=== PATIENT | male | born 1975 | race African-American/Black ===

== ENCOUNTER 2018-03-29 20:19 | Inpatient (IN) ==
[2018-03-29] MEDS ORDERED: NS 1,000 ML IV ONE ×2 (20:42→23:18)
--- NOTE | 2018-03-29 21:10 | Diag Imaging Result Doc PS360 ---
CHEST-1 VIEW - 03/29/2018 INDICATION: tachypnea COMPARISON: 03/19/2016 FINDINGS: There is a focal infiltrate in the left upper lobe. Heart size is normal. No pneumothorax or pleural effusion. IMPRESSION: Left upper lobe infiltrate. Correlate for probable pneumonia. Electronically signed by Slick Valentino 03/29/2018 9:08 PM
[2018-03-29 21:33] LABS: BASO# 0.01 X1000 (0.0-0.2); BASO% 0.1 % (0.0-0.8); HEMATOCRIT 41.7 % (42.0-52.0); HEMOGLOBIN 13.9 g/dL (14.0-18.0); IMM GRAN# 0.03 X1000 (0.0-0.04); IMM GRAN% 0.3 % (0.0-0.5); LYMPH# 1.53 X1000 (1.2-3.4); LYMPH% 15.3 % (20.5-51.1); MCH 29.6 PG (27-31); MCHC 33.3 g/dL (33-37); MCV 88.9 FL (81-99); MONO# 0.86 X1000 (0.11-0.59); MONO% 8.6 % (1.7-9.3); MPV 11.3 FL (7.4-10.4); NEUT# 7.55 X1000 (1.4-6.5); NEUT% 75.7 % (42.2-75.2); PLT 215 X1000 (130-400); RBC 4.69 XMIL (4.7-6.1); RDW 12.1 % (11.5-14.5); WBC 9.98 X1000 (4.8-10.8)
[2018-03-29 21:53] LABS: AGAP 13; ALB/GLOB RATIO 1.4; ALBUMIN 4.5 g/dL (3.5-5.0); ALKALINE PHOSPHATASE 94 U/L (32-122); BUN 10 mg/dL (8-22); CALCIUM 9.5 mg/dL (8.8-10.2); CHLORIDE 94 mmol/L (98-107); COSMO 277; CREATININE 1.5 mg/dL (0.7-1.2); ESTIMATED GFR > 60; GLUCOSE 307 mg/dL (70-104); GOT 33 U/L (10-34); GPT 76 U/L (10-44); POTASSIUM 4.6 mmol/L (3.5-5.1); SODIUM 133 mmol/L (136-145); TCO2 26 mmol/L (25-35); TOTAL BILIRUBIN 0.77 mg/dL (0.20-1.00); TOTAL PROTEIN 7.8 g/dL (6.3-8.3)
[2018-03-29] MEDS ORDERED: ROCEPHIN 1 GM in NS 50 ML IV ONE (21:59)
[2018-03-29] MEDS ORDERED: ZITHROMAX 500 MG/NS 500 MG/250 ML IVPB IV ONE (22:00)
[2018-03-29] MEDS ORDERED: TYLENOL PO ONE (22:32)
[2018-03-29] MEDS ORDERED: NS 500 ML IV ONE (23:37)
[2018-03-29 23:43] LABS: URINE SOURCE CLEAN CATCH
[2018-03-30 00:14] LABS: BILIRUBIN URINE NEGATIVE (NEGATIVE); BLOOD URINE NEGATIVE (NEGATIVE); COLOR YELLOW; GLUCOSE URINE TRACE mg/dL (NEGATIVE); KETONE URINE NEGATIVE (NEGATIVE); LEUKOCYTES URINE MODERATE (NEGATIVE); NITRITE URINE NEGATIVE (NEGATIVE); PH URINE 6.5; PROTEIN URINE NEGATIVE (NEGATIVE); SP GRAVITY URINE 1.001; TURBIDITY URINE CLEAR (CLEAR); UR EPITHELIAL CELLS <10 /HPF (<10); URINE BACTERIA NEGATIVE /HPF; URINE RBC <10 /HPF (<10); URINE WBC <10 /HPF (<10); UROBILINOGEN URINE NORMAL (NORMAL)
--- NOTE | 2018-03-30 00:16 | PROVIDER DOCUMENTATION ---
This chart was entered by Jaclyn Veras Scribe, acting as scribe for Sandra Mckeon DO. HPI-General Adult - General Chief Complaint: Flu Symptoms Stated Complaint: CHILLS, BODY ACHES, FEVER Time Seen by Provider: 03/29/18 20:26 Source: patient Allergies/Adverse Reactions: Patient Allergies Allergy/AdvReac Type Severity Reaction Status Date / Time No Known Allergies Allergy Verified 02/28/17 19:22 Home Medications: Home Medication List Medication Instructions Recorded Confirmed Last Taken Type Lorazepam [Ativan] 1 mg PO QHS 06/29/15 03/29/18 03/28/18 21:00 History Metformin [Glucophage] 850 mg PO TID CC 11/14/15 03/29/18 03/19/16 History Fluoxetine HCl 40 mg PO DAILY 02/28/17 03/29/18 03/28/18 History Glimepiride 20 mg PO DAILY 02/28/17 03/29/18 Unknown History Aripiprazole 1 tab PO AC 03/29/18 03/29/18 03/29/18 09:00 History Aripiprazole 1 tab PO HS 03/29/18 03/29/18 03/28/18 21:00 History - History of Present Illness -Gen Adult Nature of Presenting Problems: Pt is 42/m presenting to ED w/ chills, aches, pains and fever this morning. Fever reported between 102 and 104. Sts that he has also has some pain w/ urination today as well. Location of Pain/Injury: reports: generalized Pain Radiation: reports: no radiation Quality of Pain: reports: aching Severity: reports: moderate Onset/Duration: reports: this morning Timing: reports: still present Context/Activities at Onset: reports: none Modifying Factors: improves with: nothing Associated Symptoms: reports: fatigue, fever/chills. denies: cough, dizziness, shortness of breath Similar Symptoms Previously?: No Recently seen or treated by another doctor?: No Review of Systems - Adult - REVIEW OF SYSTEMS - ADULT Constitutional: reports: chills, fever Eyes: reports: no symptoms reported Ears, Nose, Mouth & Throat: reports: no symptoms reported Cardiovascular: reports: no symptoms reported. denies: chest pain, edema Respiratory: denies: cough, shortness of breath Gastrointestinal: denies: abdominal pain, nausea, vomiting Genitourinary: reports: dysuria. denies: frequent UTI's, hematuria Musculoskeletal: reports: back pain Integumentary: reports: no symptoms reported Neurological: reports: no symptoms reported. denies: dizziness/vertigo, headache/migraines Psychiatric: reports: no symptoms reported Endocrine: reports: no symptoms reported Hematologic/Lymphatic: reports: no symptoms reported Allergic/Immunologic: reports: no symptoms reported All Other Systems: Reviewed and Negative Past History - Adult - PAST MEDICAL HISTORY-ADULT Review of Records: reports: Old Records Reviewed, Nursing Assessment Review, Medications Reviewed, Social history reviewed & non-contributory. Major Childhood Illnesses: reports: denies history Cardiovascular: reports: denies history Respiratory: reports: denies history Gastrointestinal: reports: denies history Obstetrical/Gynecological: reports: denies history Genitourinary: reports: denies history, chronic UTI's (but no sign of UTI on last UA last week.) Musculoskeletal: reports: denies history Neurological: reports: denies history Psychiatric: reports: psychiatric problems, schizophrenia Endocrine/Immune: reports: denies history Other Conditions: reports: denies history - PRIOR SURGERIES/PROCEDURES Surgical/Procedure History: reports: none - IMMUNIZATION STATUS Childhood Immunizations: See Nurse Assessment Flu Vaccine: See Nurse Assessment - FAMILY HISTORY Family History: reviewed, not pertinent, mental illness (mother and brother- schizophrenia) - SOCIAL HISTORY Smoking: cigarettes, greater than 1 pack/day Provider spent 3-5 mins advising pt. on dangers of tobacco.: Discussed manners to quit use, and f/u contacts for add'l counseling. Alcohol Use Frequency: never Living Situation: family Physical Exam-General - PHYSICAL EXAM-ADULT Initial Vital Signs Reviewed: Yes - CONSTITUTIONAL General Appearance: appears well, alert, no apparent distress, other ( diaphoretic) - EYES Eyes: PERRL/EOMI - HEAD, EARS, NOSE, MOUTH & THROAT HENMT: normocephalic/atraumatic, moist mucous membranes, normal ENT inspection, TMs normal - NECK Neck: non-tender, full range of motion, supple, normal inspection - RESPIRATORY Respiratory: lungs clear, other (tachypenia) - CARDIOVASCULAR Cardiovascular: normal peripheral pulses, regular rate, rhythm, no edema - GASTROINTESTINAL (ABDOMEN) Abdominal Exam: normal bowel sounds, non tender, soft - LYMPHATIC Lymphatic: no adenopathy - MUSCULOSKELETAL Back Exam: normal inspection, no CVA tenderness, no vertebral tenderness Extremity: normal range of motion, non-tender, normal gait, normal inspection - SKIN Integumentary: normal color, warm/dry, diaphoresis - NEUROLOGIC Neurologic: grossly normal - PSYCHIATRIC Psych/Mental Status: normal mood/affect, normal thought content, normal thought process, oriented x 3 Progress - PLAN OF CARE/RESULTS Progress/Plan/Lab Results: Vital Signs - 8 hr 03/29/18 20:21 Temperature 100.1 F H Pulse Rate 118 H Respiratory Rate 18 Blood Pressure 163/97 O2 Sat by Pulse Oximetry 98 Orders Category Date Time Status INFLUENZA SCREEN A/B Stat Lab 03/29/18 20:24 Ordered Clinically stable under my care. Considerations include but not limited to: influenza, pna. His CXR shows a RIDDHI pna. His lactic acid is elevated at 2.8. He was given Ceftriaxone and Azithromycin. Admitted to the hospitalist service for further treatment. Result Diagrams: 03/29/18 21:10 03/29/18 21:10 Departure - Departure Date of Disposition Decision: 03/29/18 Time of Disposition Decision: 22:00 DIAGNOSIS: PNA (pneumonia) Qualifiers: Pneumonia type: due to unspecified organism Laterality: left Lung location: upper lobe of lung Qualified Code(s): J18.1 - Lobar pneumonia, unspecified organism Sepsis Qualifiers: Sepsis type: sepsis due to unspecified organism Qualified Code(s): A41.9 - Sepsis, unspecified organism Disposition: ADMITTED INPATIENT 09 Certified Medical Emergency: Emergent Condition: Fair Referrals and Follow-Ups: Eli Ambrosio MD [Primary Care Provider] - - Critical Care Note This patient required my direct & personal management of CC.: No Attestation - Physician/ VIVIANE Attestation Patient care was provided by Advanced Practice Provider:: No The physician spent face to face time with patient:: Yes Advanced Practice Provider documentation review:: Supervising physician onsite and consulted in the evaluation and care of this patient. The physician did have a face to face encounter with the patient. This chart was documented by the indicated scribe, (Jaclyn Veras, Scribe) and accurately reflects the services I performed and decisions made by me, Sandra Mckeon DO, as attested by the provider's signature.
--- NOTE | 2018-03-30 00:19 | HISTORY AND PHYSICAL ---
ADDENDUM: To the anticipated H and P to be done by the TELEPHONIC NURSE CASE MANAGER. Patient is complaining of a 2-day history of aches, fevers, weakness and a mild cough. Came in to get checked out and was found to have a left upper lobe infiltrate though his white count is just only 9000. He does have an elevated lactate of 2.8 which puts him at slight risk for becoming septic. As a result of this, he is being admitted. When I examined him, his exam was only notable for him being hot to touch. His cardiorespiratory exam was essentially normal. Vital signs: Blood pressure was 163/97, heart rate was 118, respiratory rate is 18, temperature is 100.6. Abdomen was benign. He will be treated for community-acquired pneumonia with Rocephin and Zithromax. IV fluids will be aggressively instituted and repeat lactate followed up. He does have good distal pulses in all extremities. so he does not appear to be in any evidence of septic shock or sepsis or any evidence of early organ failure. His A1c will need to be checked and all agents will be withheld and managed on sliding scale Humalog for now. cc: MD Dr. Hebert Wolf
[2018-03-30] MEDS ORDERED: ZOFRAN IV PRN (01:49)
[2018-03-30] MEDS: NS 1,000 ML IV SCH ×2 (02:39→16:13)
--- NOTE | 2018-03-30 05:09 | HISTORY AND PHYSICAL ---
PRIMARY CARE PROVIDER: Dr. Adrien Ambrosio. DATE AND TIME: 01/27/2019 at 0030. CHIEF COMPLAINT: Flu-like symptoms. HISTORY OF PRESENT ILLNESS: Mr. Dozier is a 42-year-old male who presented to the emergency department on March 29 at 20:19 with complaints of 2-day history of having fever, body aches and chills. He also did report a mild cough. He denies any headache, sinus congestion or drainage. He denies any shortness of breath or chest pain. The patient had reported that he does live in a house where there are children in the home who have been exposed to the flu though he did test negative for the flu in the ER this evening. A chest x-ray performed did show that he had a left upper lobe infiltrate that could be possible pneumonia. Initial vitals in the ER did show that he had a low-grade fever with a temperature of 100.1, heart rate 118, respirations 18, blood pressure was 163/97 with an oxygen saturation of 98% on room air. His white blood cell count was within normal limits though his lactate was elevated at 2.8. He did receive a total of 2500 mL of normal saline bolus in the ER and since that time his repeat lactate has improved to 1 at this time. Patient also denies any nausea, vomiting or diarrhea. His last bowel movement was yesterday. He was complaining of some occasional intermittent left side pain though he states this is not present at this time. He denied any dysuria, urinary frequency. He denies any pain, numbness, tingling or swelling in extremities. The patient will be placed inpatient admission for further treatment and evaluation of pneumonia. REVIEW OF SYSTEMS: A 14-point review of systems was conducted with the patient and all were negative except for pertinent positives mentioned in above HPI. PAST MEDICAL HISTORY: 1. Diabetes mellitus type 2. 2. Bipolar disorder. 3. Manic depressive disorder. PAST SURGICAL HISTORY: The patient denies any previous surgeries. SOCIAL HISTORY: The patient is a current everyday smoker and smokes a half a pack of cigarettes per day. He denies any alcohol or illicit drug use. FAMILY HISTORY: Positive for his mother and father both having a history of diabetes mellitus. ALLERGIES: The patient has no known allergies. HOME MEDICATIONS: 1. Abilify 5 mg p.o. q.a.m. 2. Abilify 15 mg p.o. at bedtime. 3. Fluoxetine 40 mg p.o. daily. 4. Glimepiride p.o. daily. 5. Ativan 1 mg p.o. at bedtime. 6. Metformin 850 mg p.o. t.i.d. DIAGNOSTIC DATA: White blood cell count is 9.98. Hemoglobin 13.9. Hematocrit 41.7. Platelet count is 215. Sodium 133. Potassium 4.6. Chloride 94. Serum bicarbonate is 26. BUN 10. Creatinine 1.5 with a GFR greater than 60. Glucose 307. Calcium 9.5. Liver function tests within normal limits except for ALT is slightly elevated at 76. Plasma lactate 2.8 with a redraw after fluid boluses of 1. Urinalysis obtained via clean cath was positive for moderate leukocytes, it was otherwise within normal limits. Chest x-ray did show a left upper lobe infiltrate which was noted to be correlated for probable pneumonia. PHYSICAL EXAMINATION: VITAL SIGNS: Temperature 99, heart rate 99, respirations 18, blood pressure 137 /87, oxygen saturation is 99% on room air. GENERAL: Mr. Dozier is a pleasant 42-year-old male. He was resting in the inpatient bed. He was in no acute distress. He was awake, alert and able to answer all questions appropriately. HEENT: Head is atraumatic, normocephalic. Pupils equal, round, reactive to light, were 3 mm and brisk. Oral mucosa is moist. NECK: Supple. Trachea midline. CARDIOVASCULAR: Patient has normal S1, S2. No murmurs, gallops, or rubs appreciated. PULMONARY: Patient has symmetrical chest expansion bilaterally. Lung sounds were clear to auscultation in bilateral full ramirez. ABDOMEN: Soft, does not appear to be distended though the patient does have a slightly protuberant abdomen noted. Bowel sounds are present in all 4 quadrants, are normoactive. EXTREMITIES: No clubbing, cyanosis, or edema noted. Pulse, motor, and sensory are intact in all extremities. Radial pulses and pedal pulses were 2 plus bilaterally. INTEGUMENTARY: The patient's skin color is normal for his race. It is dry and intact. NEUROLOGICAL: Patient is alert and oriented times 4. Do not appear to be any focal neurological deficits noted. ASSESSMENT AND PLAN: 1. Left upper lobe pneumonia. For this, we will treat the patient with antibiotic coverage of IV Rocephin and azithromycin. The patient's lactate was elevated at 2.8 though after fluid bolus this has improved though at this time, it does not appear that the patient is septic though we will continue to monitor. We will encourage frequent turn, cough and deep breathing as well. 2. Diabetes mellitus type 2. We have ordered for the patient to have a hemoglobin A1c drawn though at this time his creatinine is slightly elevated at 1.5. Given this, we have held his glimepiride and metformin. We will place him on a lispro sliding scale insulin. We will continue to monitor. 3. History of bipolar disorder and manic depressive disorder. We have continued his Abilify and fluoxetine. 4. Nicotine dependence. We did relocation counselor the patient on the importance of smoking cessation for several minutes. He did state verbal understanding. We will order him a nicotine patch as well. 5. Deep venous thrombosis prophylaxis will be provided with sequential compression devices. The patient has been placed on medical floor with telemetry. Will have vital signs q.4 hours. Do strict intake and output. We will repeat the CBC, BMP in the morning. He will be on a diabetic diet. We will continue with some gentle fluid hydration with normal saline at 85 mL per hour. Further orders, recommendations pending hospital course, diagnostic studies and physician evaluation. Dictated by RITO Spring for Eugene Land MD cc: MD Clifton Wolf MD MTDD
[2018-03-30] MEDS: HUMALOG SUBQ SCH ×4 (06:03→20:57)
[2018-03-30] MEDS: ABILIFY PO SCH ×4 (06:09→20:19)
[2018-03-30 07:27] LABS: BASO# 0.01 X1000 (0.0-0.2); BASO% 0.1 % (0.0-0.8); EOS# 0.01 X1000 (0.0-0.7); EOS% 0.1 % (0.0-10.0); HEMATOCRIT 38.8 % (42.0-52.0); HEMOGLOBIN 12.8 g/dL (14.0-18.0); LYMPH# 1.67 X1000 (1.2-3.4); LYMPH% 20.8 % (20.5-51.1); MCH 29.6 PG (27-31); MCV 89.6 FL (81-99); MONO# 0.69 X1000 (0.11-0.59); MONO% 8.6 % (1.7-9.3); MPV 10.7 FL (7.4-10.4); NEUT# 5.65 X1000 (1.4-6.5); NEUT% 70.4 % (42.2-75.2); PLT 194 X1000 (130-400); RBC 4.33 XMIL (4.7-6.1); RDW 12.1 % (11.5-14.5); WBC 8.03 X1000 (4.8-10.8)
[2018-03-30 07:44] LABS: HEMOGLOBIN A1C 10.2 % (4.8-6.0)
[2018-03-30 07:49] LABS: AGAP 14; BUN 8 mg/dL (8-22); CALCIUM 8.7 mg/dL (8.8-10.2); CHLORIDE 102 mmol/L (98-107); COSMO 285; CREATININE 1.4 mg/dL (0.7-1.2); ESTIMATED GFR > 60; GLUCOSE 226 mg/dL (70-104); POTASSIUM 4.2 mmol/L (3.5-5.1); SODIUM 140 mmol/L (136-145); TCO2 24 mmol/L (25-35)
[2018-03-30] MEDS: PROZAC PO SCH (08:29)
[2018-03-30] MEDS: NICODERM PATCH TD SCH (08:29)
[2018-03-30] MEDS: TYLENOL PO PRN ×2 (12:46→20:19)
[2018-03-30] MEDS: ATIVAN PO SCH (20:19)
[2018-03-30] MEDS: ROCEPHIN 1 GM in NS 50 ML IV SCH (20:59)
[2018-03-30] MEDS: ZITHROMAX 500 MG/NS 500 MG/250 ML IVPB IV SCH (23:14)
[2018-03-31] MEDS: ABILIFY PO SCH ×4 (07:21→22:08)
[2018-03-31] MEDS: HUMALOG SUBQ SCH ×4 (07:22→22:06)
[2018-03-31 08:08] LABS: BASO# 0.01 X1000 (0.0-0.2); BASO% 0.2 % (0.0-0.8); EOS# 0.07 X1000 (0.0-0.7); EOS% 1.3 % (0.0-10.0); HEMATOCRIT 37.8 % (42.0-52.0); HEMOGLOBIN 12.6 g/dL (14.0-18.0); LYMPH# 1.68 X1000 (1.2-3.4); LYMPH% 30.1 % (20.5-51.1); MCH 29.8 PG (27-31); MCHC 33.3 g/dL (33-37); MCV 89.4 FL (81-99); MONO# 0.65 X1000 (0.11-0.59); MONO% 11.6 % (1.7-9.3); NEUT# 3.18 X1000 (1.4-6.5); NEUT% 56.8 % (42.2-75.2); PLT 214 X1000 (130-400); RBC 4.23 XMIL (4.7-6.1); WBC 5.59 X1000 (4.8-10.8)
[2018-03-31 08:42] LABS: AGAP 11; ALB/GLOB RATIO 1.2; ALBUMIN 3.9 g/dL (3.5-5.0); ALKALINE PHOSPHATASE 81 U/L (32-122); BUN 10 mg/dL (8-22); CALCIUM 8.5 mg/dL (8.8-10.2); CHLORIDE 104 mmol/L (98-107); COSMO 281; CREATININE 1.2 mg/dL (0.7-1.2); ESTIMATED GFR > 60; GLUCOSE 211 mg/dL (70-104); GOT 32 U/L (10-34); GPT 69 U/L (10-44); POTASSIUM 4.3 mmol/L (3.5-5.1); SODIUM 138 mmol/L (136-145); TCO2 23 mmol/L (25-35); TOTAL BILIRUBIN 0.74 mg/dL (0.20-1.00); TOTAL PROTEIN 7.1 g/dL (6.3-8.3)
[2018-03-31] MEDS: NICODERM PATCH TD SCH (09:21)
[2018-03-31] MEDS: PROZAC PO SCH (09:21)
--- NOTE | 2018-03-31 21:34 | PROGRESS NOTE ---
DATE: 03/31/2018 SUBJECTIVE: The patient is a little better. Decreased cough and wheezing. REVIEW OF SYSTEMS: None reported. OBJECTIVE: Vital signs: Temperature is 98 degrees, pulse is 87, blood pressure 143/98. HEENT: Within normal limits. Neck: Supple. Chest: Clear. No signs of pneumonitis. Heart: Sounds are regular. Belly: Is soft, nontender. Good bowel sounds. No neurological deficits. INVESTIGATIONS: CBC: White cell count 5.5, hematocrit 37, platelets 214,000. SMA 7 is normal. Creatinine 1.2. Sugar is 211, A1c 10. LFTs were normal. Urine cultures are gram-positive cocci. Blood cultures were negative. Is not significant. Influenza screen test was negative. Chest x- ray, left upper lobe infiltrate on 03/29/2018. ASSESSMENT AND PLAN: 1. Uncontrolled diabetes due to noncompliance. We will start back on metformin and glimepiride. 2. A1c 10.1. Restart on metformin and glimepiride. 3. Left upper lobe pneumonia currently on intravenous ceftriaxone and Zithromax. Repeat chest x- ray. 4. Bipolar disorder. Continue present medications. 5. Chronic nicotine abuse on Nicotrol patch. 6. Deep vein thrombosis prophylaxis with Lovenox and repeat the chest x-ray in the morning and will follow up. LEVEL OF DOCUMENTATION: 25 minutes. cc: Clifton Ambrosio MD
[2018-03-31] MEDS: ROCEPHIN 1 GM in NS 50 ML IV SCH (22:02)
[2018-03-31] MEDS: ATIVAN PO SCH (22:08)
[2018-03-31] MEDS: ZITHROMAX 500 MG/NS 500 MG/250 ML IVPB IV SCH (22:59)
[2018-04-01] MEDS: TYLENOL PO PRN (02:52)
[2018-04-01] MEDS: ABILIFY PO SCH ×4 (06:09→22:02)
[2018-04-01] MEDS: HUMALOG SUBQ SCH ×4 (06:10→22:02)
[2018-04-01] MEDS: PROZAC PO SCH (09:20)
[2018-04-01] MEDS: GLUCOPHAGE PO SCH ×3 (09:20→16:00)
[2018-04-01] MEDS: LOVENOX SUBQ SCH (09:20)
[2018-04-01] MEDS: AMARYL PO SCH ×2 (09:23→22:03)
[2018-04-01] MEDS: NICODERM PATCH TD SCH (09:23)
--- NOTE | 2018-04-01 10:04 | Diag Imaging Result Doc PS360 ---
EXAM: CHEST-2 VIEWS 04/01/2018 HISTORY: hypoxia TECHNIQUE: PA and lateral chest COMMENT: There is ill-defined alveolar opacity in the left upper lobe which is somewhat more extensive than on 03/29/2018. It was not present on 03/19/2016. The heart size and pulmonary vascularity are within normal limits. IMPRESSION: Left upper lobe pneumonia. Electronically signed by Shaji Blanca 04/01/2018 10:02 AM
[2018-04-01] MEDS: ATIVAN PO SCH (22:02)
[2018-04-01] MEDS: ROCEPHIN 1 GM in NS 50 ML IV SCH (22:03)
[2018-04-01] MEDS: ZITHROMAX 500 MG/NS 500 MG/250 ML IVPB IV SCH (23:12)
[2018-04-02] MEDS: TYLENOL PO PRN (00:23)
--- NOTE | 2018-04-02 00:54 | PROGRESS NOTE ---
DATE: 04/01/2018 SUBJECTIVE: Patient is anxious to go home. His is at bedside. He is not complaining of any symptoms. EXAMINATION: Vital Signs: Temperature is 98 degrees, pulse is 82, blood pressure is 148/88, 97% on room air. HEENT: Within normal limits. Neck: Supple. Chest: Bilateral air entry. Crackles and rhonchi on the left side. Abdomen: Belly is soft, nontender. Neurologic: No obvious neurological deficits. INVESTIGATIONS: Chest x-ray with worsening of left upper lobe pneumonia. ASSESSMENT AND PLAN: 1. Left upper lobe pneumonia, with underlying diabetes and bipolar disorder. Currently, on ceftriaxone and Zithromax. 2. Type 2 diabetes. Metformin and glimepiride. 3. Bipolar disorder. Continue on Abilify. On Prozac. 4. Deep venous thrombosis prophylaxis with Lovenox. 5. Chronic anxiety, on Ativan at bedtime. 6. Urine cultures basically Staph aureus, 20,000 to 30,000, penicillin-resistant, oxacillin- sensitive. Currently, asymptomatic. Blood cultures were negative. Continue IV antibiotics until the infiltrate clears. 7. Discussed with the family. Agreeable to stay in the hospital. LEVEL OF DOCUMENTATION: 25 minutes. cc: Clifton Ambrosio MD
[2018-04-02] MEDS: HUMALOG SUBQ SCH ×4 (06:09→22:39)
[2018-04-02] MEDS: ABILIFY PO SCH ×4 (06:10→22:38)
[2018-04-02] MEDS: PROZAC PO SCH (08:42)
[2018-04-02] MEDS: LOVENOX SUBQ SCH (08:42)
[2018-04-02] MEDS: AMARYL PO SCH ×2 (08:42→22:39)
[2018-04-02] MEDS: NICODERM PATCH TD SCH (08:42)
[2018-04-02] MEDS: GLUCOPHAGE PO SCH ×3 (08:42→17:12)
[2018-04-02] MEDS: ROCEPHIN 1 GM in NS 50 ML IV SCH (22:38)
[2018-04-02] MEDS: ATIVAN PO SCH (22:39)
[2018-04-02] MEDS: ZITHROMAX 500 MG/NS 500 MG/250 ML IVPB IV SCH (23:29)
[2018-04-03] MEDS: TYLENOL PO PRN (03:48)
--- NOTE | 2018-04-03 03:52 | PROGRESS NOTE ---
DATE: 04/02/2018 SUBJECTIVE: The patient is getting better, afebrile. Nonproductive cough. EXAMINATION: Vital Signs: Temperature is 98.7 degrees, pulse is 88, blood pressure is stable. HEENT: Within normal limits. Neck: Supple. Chest: Clear to auscultation. Heart: Sounds are regular. Abdomen: Belly is soft, nontender. Good bowel sounds. Neurologic: No neurological deficits. ASSESSMENT AND PLAN: 1. Left upper lobe pneumonia. Continue present treatment. Clinically stable. We will repeat a chest x-ray in the morning. 2. Diabetes, stable. 3. Bipolar is stable. LEVEL OF DOCUMENTATION: 15 minutes. cc: Clifton Ambrosio MD
[2018-04-03] MEDS: HUMALOG SUBQ SCH ×2 (06:36→11:50)
[2018-04-03] MEDS: ABILIFY PO SCH ×2 (06:54→11:50)
--- NOTE | 2018-04-03 07:31 | Diag Imaging Result Doc PS360 ---
EXAM: CHEST-2 VIEWS HISTORY: hypoxia TECHNIQUE: Chest three views COMPARISON: 04/01/2018 FINDINGS: The lungs are well expanded. The heart is not enlarged. The vessels are not distended. There are mild increased interstitial markings in the mid left lung similar to the prior study. No pleural effusions. IMPRESSION: Stable chest. Electronically signed by Washington Suarez 04/03/2018 7:28 AM
[2018-04-03 07:38] VITALS: BP 128/84
[2018-04-03] MEDS: LOVENOX SUBQ SCH (08:31)
[2018-04-03] MEDS: GLUCOPHAGE PO SCH ×2 (08:31→11:50)
[2018-04-03] MEDS: AMARYL PO SCH (08:31)
[2018-04-03] MEDS: NICODERM PATCH TD SCH (08:32)
[2018-04-03] MEDS: PROZAC PO SCH (08:32)
[2018-04-03] MEDS ORDERED: PREVNAR 13 IM ONE (09:27)
--- NOTE | 2018-04-04 15:58 | DISCHARGE SUMMARY ---
ADMISSION DATE: 03/30/2018 DISCHARGE DATE: 04/03/2018 DISCHARGE DIAGNOSES: 1. Left upper lobe pneumonia. 2. Bipolar disorder. 3. Type 2 diabetes. 4. Metabolic syndrome. 5. History of noncompliance. BRIEF HISTORY: Please see the H and P that was done by hospitalist on 03/30/2018. In brief, he is a 42-year-old male basically admitted to the hospital with URI symptoms. Chest x-ray showed left upper lobe pneumonia. HOSPITAL COURSE: Influenza test was negative. He is less symptomatic. Blood sugars are out of control due to noncompliance. The patient was given broad spectrum IV antibiotics and follow up of symptoms as well as chest x-ray improved. The rest of the hospital course was uneventful. DIAGNOSTIC DATA: CBC with white cell count of 5.5, hematocrit 37.8, platelets 214. SMA-7 showed sodium 138, potassium 4.3, chloride 104, BUN of 10, creatinine 1.2, glucose 211. A1c of 10. LFTs were normal. Urine culture showed Staphylococcus aureus of 20,000 to 30,000, sensitive to tetracycline, oxacillin sensitive. Repeat blood cultures were negative. Influenza screen was negative. Followup chest x-ray much improved of left upper lobe infiltrate. DISCHARGE INSTRUCTIONS: Pneumococcal-13 was given 04/03/2018. DISCHARGE MEDICATIONS: Ativan 1 mg at bedtime, metformin 850 t.i.d. with meals, vitamin B12 1000 mcg daily, glimepiride 2 mg p.o. b.i.d., Abilify 5 mg daily in the morning and 15 at night, doxycycline 100 p.o. b.i.d. for 10 days. FOLLOWUP: Follow up in my office next week for maintenance care for diabetes. cc: Clifton Ambrosio MD
== END 2018-04-03 13:21 | disposition home or self-care (01) | DRG 195 ==
LOC: ED 20:19 → 3N 03-30 00:40 → SUATTDRO 03-30 00:40
PROVIDERS: ADMIT Internal Medicine; ATTEND Internal Medicine
CPT/HCPCS: 71010; 71020; 71045; 71046; 80048; 80053; 81001; 82948; 83036; 83605; 85025; 87040; 87077; 87088; 87186; 87275; 87276; 87804; 90670; 94761; 94799; 96361; 96365; 96366; 96368; 99285; A9270; J0456; J0696; J1650; J1815; J7030; J7040; XXXXX